=== PATIENT | female | born 1995 | race African-American/Black ===

== ENCOUNTER 2022-01-04 11:33 | Emergency (ER) | payer MEDICAID ==
[~2022-01-04] VITALS: Ht 162.6 cm; Wt 50.0 kg
[2022-01-04 11:36] VITALS: BP 114/82
[2022-01-04] MEDS ORDERED: BACITRACIN ZINC OINT UDPKT TOP ONE (12:30)
[2022-01-04] MEDS ORDERED: HYDROCODONE/ACETAMINOPHEN 5/325MG TABLET PO NR (12:45)
[2022-01-04] MEDS ORDERED: IBUP-2029 PO (12:51)
[2022-01-04] MEDS ORDERED: HYDR-4350 PO (12:51)
== END 2022-01-04 13:32 | disposition home or self-care (01) ==
LOC: ER 11:33
DX: S71.131A Puncture wound without foreign body, right thigh, initial encounter (principal); W34.00XA Accidental discharge from unspecified firearms or gun, initial encounter; Y93.89 Activity, other specified; Y92.89 Other specified places as the place of occurrence of the external cause; Y99.8 Other external cause status
CPT/HCPCS: 99283